=== PATIENT | male | born 1990 | race Caucasian/White ===

== ENCOUNTER 2018-02-11 08:54 | Emergency (ER) | payer SELFPAY ==
[2018-02-11] MEDS ORDERED: Lidocaine 1% INJ* 10 MG/ML 30 ML SDV INJ ONE (09:30)
[2018-02-11] MEDS ORDERED: Lidocaine 1%* 5 ML VIAL ONE (09:51)
[2018-02-11] MEDS ORDERED: Lidocaine 1%* 5 ML VIAL INJ ONE (09:53)
--- NOTE | 2018-02-11 10:15 | RAD ---
INDICATION: Right ring finger injury. TECHNIQUE: 3 views of the right ring finger were obtained. FINDINGS: There is a soft tissue defect present at the tip of the finger in the region of the tuft of the distal phalanx. No fracture is seen. No radio opaque foreign body is noted. IMPRESSION: SOFT TISSUE INJURY, NO FRACTURE IS SEEN.
[2018-02-11 11:08] VITALS: BP 132/81
--- NOTE | 2018-02-11 16:41 | ED ---
Laceration/Wound HPI - HPI Summary HPI Summary: Patient is a 28-year-old male who presents emergency department for laceration to distal right fourth digit of hand. Incident occurred just prior to arrival. Patient was work when he actually cut finger in the kitchen cutting food. Patient states his tetanus is up-to-date. He has no past medical history. Symptoms are mild in severity. Touching digit makes symptoms worse. Rest makes symptoms better. - History of Current Complaint Stated Complaint: RT RING FINGER LAC Time Seen by Provider: 02/11/18 09:22 Hx Obtained From: Patient Pain Intensity: 2 Pain Scale Used: 0-10 Numeric - Allergy/Home Medications Allergies/Adverse Reactions: Allergies Allergy/AdvReac Type Severity Reaction Status Date / Time amoxicillin Allergy Unknown Verified 02/11/18 11:04 Reaction Details erythromycin base Allergy Unknown Verified 02/11/18 11:04 Reaction Details Penicillins Allergy Unknown Verified 02/11/18 11:04 Reaction Details PMH/Surg Hx/FS Hx/Imm Hx Previously Healthy: Yes Endocrine/Hematology History: Denies: Hx Anticoagulant Therapy, Hx Diabetes, Hx Thyroid Disease Cardiovascular History: Denies: Hx Hypertension, Hx Pacemaker/ICD Respiratory History: Denies: Hx Asthma, Hx Chronic Obstructive Pulmonary Disease (COPD) History: Denies: Hx Renal Disease Neurological History: Denies: Hx Dementia, Hx Seizures Psychiatric History: Denies: Hx Substance Abuse Infectious Disease History: No Infectious Disease History: Denies: Hx Hepatitis, Hx Human Immunodeficiency Virus (HIV), Traveled Outside the in Last 30 Days - Social History Occupation: Employed Full-time Lives: With Family Alcohol Use: Occasionally Substance Use Type: Reports: None Smoking Status (MU): Never Smoked Tobacco Review of Systems Positive: Other - finger laceration All Other Systems Reviewed And Are Negative: Yes Physical Exam Triage Information Reviewed: Yes Vital Signs On Initial Exam: Initial Vitals Temp Pulse Resp BP Pulse Ox 97.5 F 79 16 146/86 100 02/11/18 09:06 02/11/18 09:06 02/11/18 09:06 02/11/18 09:06 02/11/18 09:06 Vital Signs Reviewed: Yes Appearance: Positive: Well-Appearing - Patient sitting in bed in no acute distress. Skin: Positive: Warm, Dry Head/Face: Positive: Normal Head/Face Inspection Eyes: Positive: Normal, FLAVIA Neck: Positive: Supple Musculoskeletal: Positive: Other - Noted to the distal dorsal aspect of the fourth digit of right hand there is a 1.5 cm laceration noted through the medial aspect of the upper nailbed. Tendons are intact. No bone exposure. Neurological: Positive: Normal, CN Intact II-III Procedures - Laceration/Wound Repair 1 Location: upper extremity - right fourth digit Description: Irregular Anesthesia: Digital, 1.0% - 4cc Betadine Prep?: No - hibiclens Irrigated w/ Saline (ccs): 10 Laceration/Wound Explored: clean Closure: Single Layer Suture Type: Nylon Number of Sutures: 6 Layer Closure?: No Sterile Dressing Applied?: Yes Diagnostics - Vital Signs Vital Signs Temp Pulse Resp BP Pulse Ox 02/11/18 11:04 97.9 F 65 16 132/81 98 02/11/18 09:06 97.5 F 79 16 146/86 100 - Laboratory Lab Statement: Any lab studies that have been ordered have been reviewed, and results considered in the medical decision making process. Laceration Repair Course/Dx - Course Course Of Treatment: Pt. presenting for a distal finger laceration. X-rays negative for fracture, reading per radiology. Wound was extensively irrigated. Nailbed was repaired and wound was approximated. Prophylactically start patient on Keflex even extend to the laceration. Finger splint placed for comfort. Advised patient to keep the wound clean and dry. Can take Tylenol or Motrin for pain as directed. To return to the ER for redness, swelling or drainage from suture site. Suture removal in 7-10 days. Patient understands and agrees with plan. - Differential Dx Differental Diagnoses: Fracture, Laceration, Puncture Wound - Clinical Impression Provider Diagnoses: Laceration of finger nail bed, Finger laceration Discharge - Sign-Out/Discharge Documenting (check all that apply): Discharge/Admit/Transfer - Discharge Plan Condition: Good Disposition: HOME Prescriptions: Cephalexin CAP* [Keflex CAP*] 500 mg PO BID #10 cap Patient Education Materials: Finger Laceration (ED) Referrals: [facility] [Outside] No Primary Care Phys,NOPCP [Primary Care Provider] - Additional Instructions: Call the physician referral line to establish a PCP Oscar antibiotic as directed to prevent infection Suture removal in 7-10 days Keep wound clean and dry Can wear splint for comfort Tylenol or Motrin for pain as directed Return to the ER for redness, swelling or drainage from suture site - Billing Disposition and Condition Condition: GOOD Disposition: HOME
== END 2018-02-11 11:04 | disposition home or self-care (01) ==
LOC: ED 08:54
DX: S61.314A Laceration without foreign body of right ring finger with damage to nail, initial encounter (principal); W45.8XXA Other foreign body or object entering through skin, initial encounter; Y93.G1 Activity, food preparation and clean up; Y92.9 Unspecified place or not applicable; Z88.0 Allergy status to penicillin; Z88.3 Allergy status to other anti-infective agents
CPT/HCPCS: 12001; 73140; 99282